=== PATIENT | female | born 1990 | race Two or more races ===

== ENCOUNTER 2020-02-01 11:26 | Emergency (ER) | payer MEDICAID ==
[~2020-02-01] VITALS: Ht 157.5 cm; Wt 60.0 kg
[2020-02-01 13:18] LABS: BASOPHILS % 0.7 % (0.0-2.0); CHLORIDE 102 mEq/L (98-107); EOSINOPHILS % 0.4 % (0.0-5.0); HEMATOCRIT. 42.7 % (36.0-48.0); HEMOGLOBIN. 14.6 g/dL (12.0-16.0); LYMPHOCYTES % 25.1 % (20.0-50.0); MEAN CORPUSCULAR HEMOGLOBIN 30.7 pg (28.0-32.0); MEAN CORPUSCULAR VOLUME 89.7 fL (81.0-99.0); MEAN PLATELET VOLUME 8.9 fl (7.4-10.4); MONOCYTES % 6.4 % (2.0-8.0); NEUTROPHILS % 67.4 % (40.0-76.0); PLATELET 218 x1000/uL (130-400); RED BLOOD CELL COUNT 4.76 mill/uL (4.2-5.4); RED CELL DISTRIBUTION WIDTH 13.8 % (11.6-14.6)
[2020-02-01 13:22] LABS: HCG SCREEN NEGATIVE
[2020-02-01 15:00] VITALS: BP 132/78
== END 2020-02-01 15:20 | disposition home or self-care (01) ==
LOC: ER 11:26
DX: R53.1 Weakness (principal); Z88.1 Allergy status to other antibiotic agents
CPT/HCPCS: 36415; 71045; 80053; 84703; 85025; 86850; 86900; 93005; 99285